=== PATIENT | female | born 1995 | race Caucasian/White ===

== ENCOUNTER → 2016-11-08 | Outpatient (CLI) | payer OTHER ==
--- NOTE | 2016-11-08 16:20 | KCIC ---
ABDOMEN COMPLETE History: Left upper quadrant abdominal tenderness and rebound tenderness Comparison: None. Findings: Multiple sonographic images of the abdomen are submitted. There is no abnormality of the visualized pancreas. There is segmental visualization of the inferior vena cava. Abdominal aortic caliber is within normal limits, greatest dimension 1.4 cm proximally. Hepatic echotexture is within normal limits, no focal hepatic lesion demonstrated. Right lobe of the liver measured 15 cm longitudinal. There is normal directional flow of the main portal vein. Gallbladder is present without intraluminal abnormality, wall thickening, pericholecystic fluid. Right kidney measured 11.2 x 4 x 5.1 cm, no hydronephrosis. Left kidney measured 11.6 x 4 x 3.8 cm, no hydronephrosis. Spleen measured up to 13 cm, no significant adjacent fluid is identified. There is bowel gas in the area of pain of the left upper quadrant. Impression: 1. Spleen is somewhat prominent in longitudinal dimension, no other significant abnormality demonstrated. Electronically signed by: Bam Rossi MD (11/08/2016 4:17 PM) [id number]
== END | disposition home or self-care (01) ==
LOC: KCIC US 14:21
PROVIDERS: ATTEND Nurse Practitioner Family
DX: R10.822 Left upper quadrant rebound abdominal tenderness (principal)
CPT/HCPCS: 76700